=== PATIENT | male | born 1965 | race Two or more races ===

== ENCOUNTER 2023-11-16 06:19 | Day surgery (SDC) | payer BC, SELFPAY ==
[2023-11-02 06:46] VITALS: BMI 29.8
[2023-11-02 08:59] LABS: Hematocrit 40.4 % (39.0-52.0); Hemoglobin 13.8 g/dL (13.0-18.0); Mean Corp Hgb Conc. 34.2 g/dL (33.0-37.0); Mean Corpuscular Hgb 30.5 pg (27.0-31.0); Mean Corpuscular Volume 89.2 fL (80.0-94.0); Mean Platelet Volume 10.9 fL (7.4-10.4); Platelet Count 268 10^3/uL (130-400); Red Blood Cell Count 4.53 10^6/uL (4.70-6.10); Red Cell Dist. Width 12.9 % (11.5-14.5); White Blood Cell Count 6.9 10^3/uL (4.8-10.8)
[2023-11-02 09:11] LABS: Blood Urea Nitrogen 16 mg/dl (9-20); Calcium 9.3 mg/dl (8.4-10.2); Carbon Dioxide 25 mmol/L (22-30); Chloride 106 mmol/L (98-107); Estimated Creatinine Clearance 104 ml/min; Glucose 87 mg/dl (70-99); Potassium 4.2 mmol/L (3.5-5.1); Sodium 140 mmol/L (135-145); eGFR > 60.00
[2023-11-16] VITALS (14 sets, daily range): BP systolic 102–136; BP diastolic 70–91; BMI 29.8
[2023-11-16] MEDS: TYLENOL 1000 MG PO (10:43)
[2023-11-16] MEDS: NORMOSOL-R 1000 IV (10:56)
[2023-11-16] MEDS: DILAUDID 0.5 MG IV ×5 (12:54→13:41)
--- NOTE | 2023-11-16 13:28 | SUR.PHASEI ---
Patient having 'severe' pain on arrival to PACU, patient agitated, abdomen benign. Medicated per orders. Dr Mancini informed. Patient had 8 beat run OF VT, Dr Camacho informed, no orders. Isabelle Hill RN BSN.
--- NOTE | 2023-11-16 13:43 | SUR.PHASEI ---
Patient seen by Dr Mancini regarding 'severe pain' no orders. seen by Dr Camacho re non sustained VT, no orders. Isabelle lynn RN BSN.
[2023-11-16] MEDS: DILAUDID 0.25 MG IV ×3 (13:54→14:21)
--- NOTE | 2023-11-16 14:22 | SUR.PHASEI ---
Patient remains to have 'severe pain' Dr Camacho contacted re same. Isabelle Hill RN BSN.
[2023-11-16] MEDS: ROXICODONE 5 MG PO (15:14)
== END 2023-11-16 16:00 | disposition home or self-care (01) ==
LOC: SDS 06:19
PROVIDERS: ATTENDING PHYSICIAN Surgery; FAMILY PHYSICIAN Family Medicine
DX: K40.90 Unilateral inguinal hernia, without obstruction or gangrene, not specified as recurrent (principal)
CPT/HCPCS: 49650; 36415; 80048; 85027; C1781

== ENCOUNTER 2024-09-12 01:20 | Emergency (ER) | payer BC, SELFPAY ==
[2024-09-12 01:23] VITALS: BP 121/94
[2024-09-12 02:17] VITALS: BP 127/85
[2024-09-12 02:25] VITALS: BMI 30.2
--- NOTE | 2024-09-12 02:27 | ED.GENMED ---
History of Present Illness
<Manny Dueñas, DO - Last Filed: 09/13/24 12:30>
General
Chief Complaint: Abdominal Pain
Source: patient
Exam Limitations: none
Time Seen by Provider: 09/12/24 01:51
History of Present Illness
History of Present Illness:
See MDM
Past History
<Manny Dueñas, DO - Last Filed: 09/13/24 12:30>
Past History
ED Past Medical History: GERD and Other (Diverticulitis)
ED Past Surgical History: None
Social History
Tobacco: Non-smoker
Alcohol: None
Phy Exam
<Manny Dueñas, DO - Last Filed: 09/13/24 12:30>
Physical Exam
Physical Exam:
See MDM
Course
<Manny Dueñas, DO - Last Filed: 09/13/24 12:30>
Orders/Labs/Results
Orders:
Orders
09/12/24 02:01
CT Abd/pelvis W Iv Cont Urgent
Comment:
Reason For Exam: LLQ pain
0.9% Sodium Chloride 1000 ml [Nss] 1,000 ml IV BOLUS
Ketorolac [Toradol] 30 mg IV NOW STA
Ondansetron Injectable [Zofran] 4 mg IV NOW STA
09/12/24 02:27
Complete Blood Count/With Diff Urgent
Comprehensive Metabolic Panel Urgent
Urinalysis Reflex To Culture Urgent
Date Specimen was Collected: 09/12/24
Time Specimen was Collected: 02:17
Urine Microscopic Reflex Cult Urgent
09/12/24 04:44
Amoxicillin 875 mg/Clav 125 mg [Augmentin 875 mg/125 mg] 1 tablet PO NOW STA
Oxycodone/Acetaminophen [Percocet 5/325] 1 tablet PO NOW STA
Abnormal Lab Results
09/12/24
02:27
MPV 10.5 H fL
(7.4-10.4)
Absolute Neuts (auto) 7.2 H 10^3/uL
(1.4-6.5)
Absolute Lymphs (auto) 0.9 L 10^3/uL
(1.2-3.4)
Neutrophils % 81.8 H %
(42.2-75.2)
Lymphocytes % 10.5 L %
(20.5-51.1)
Ur Occult Blood Reflex 1+ A
(Negative)
Urine RBC 3-6 A /HPF
(0-2)
Urine Bacteria (Reflex) Few A
(Negative)
09/12/24 02:27
09/12/24 02:27
Vital Signs
Initial and Last Documented VS:
Initial Vital Signs
Temp Pulse Resp BP Pulse Ox
98.3 F 84 16 121/94 97
09/12/24 01:23 09/12/24 01:23 09/12/24 01:23 09/12/24 01:23 09/12/24 01:23
Last Documented Vital Signs
Temp Pulse Resp BP Pulse Ox
98.3 F 76 14 111/74 100
09/12/24 01:23 09/12/24 05:25 09/12/24 05:25 09/12/24 05:25 09/12/24 05:25
<Carlos Wilhelm, DO - Last Filed: 09/12/24 05:32>
Orders/Labs/Results
Orders:
Orders
09/12/24 02:01
CT Abd/pelvis W Iv Cont Urgent
Comment:
Reason For Exam: LLQ pain
0.9% Sodium Chloride 1000 ml [Nss] 1,000 ml IV BOLUS
Ketorolac [Toradol] 30 mg IV NOW STA
Ondansetron Injectable [Zofran] 4 mg IV NOW STA
09/12/24 02:27
Complete Blood Count/With Diff Urgent
Comprehensive Metabolic Panel Urgent
Urinalysis Reflex To Culture Urgent
Date Specimen was Collected: 09/12/24
Time Specimen was Collected: 02:17
Urine Microscopic Reflex Cult Urgent
09/12/24 04:44
Amoxicillin 875 mg/Clav 125 mg [Augmentin 875 mg/125 mg] 1 tablet PO NOW STA
Oxycodone/Acetaminophen [Percocet 5/325] 1 tablet PO NOW STA
Abnormal Lab Results
09/12/24
02:27
MPV 10.5 H fL
(7.4-10.4)
Absolute Neuts (auto) 7.2 H 10^3/uL
(1.4-6.5)
Absolute Lymphs (auto) 0.9 L 10^3/uL
(1.2-3.4)
Neutrophils % 81.8 H %
(42.2-75.2)
Lymphocytes % 10.5 L %
(20.5-51.1)
Ur Occult Blood Reflex 1+ A
(Negative)
Urine RBC 3-6 A /HPF
(0-2)
Urine Bacteria (Reflex) Few A
(Negative)
09/12/24 02:27
09/12/24 02:27
Vital Signs
Initial and Last Documented VS:
Initial Vital Signs
Temp Pulse Resp BP Pulse Ox
98.3 F 84 16 121/94 97
09/12/24 01:23 09/12/24 01:23 09/12/24 01:23 09/12/24 01:23 09/12/24 01:23
Last Documented Vital Signs
Temp Pulse Resp BP Pulse Ox
98.3 F 76 14 111/74 100
09/12/24 01:23 09/12/24 05:25 09/12/24 05:25 09/12/24 05:25 09/12/24 05:25
<Manny Dueñas, DO - Last Filed: 09/13/24 12:30>
MDM/Problems Addressed
Differential Diagnosis Includes:
HPI and MDM Narrative:
58-year-old male presenting for evaluation of left lower abdominal pain. This is associated with mild left flank pain as well. He denies urinary symptoms. Patient is concerned this could be another diverticulitis flare. He has followed up with
colorectal in the past and they had suggested surgery. Patient has been hesitant to get the surgery. On exam, he does not have any peritoneal findings but given his prior history, will obtain CT to rule out any evidence of complicated
diverticulitis
Physical exam
General: Mildly uncomfortable
HEENT: protecting airway
Neck: appears supple
CV: No evidence of cyanosis
Resp: No accessory muscle use
Abd: Non-distended. Left lower quadrant tenderness without rebound
Extremities: No deformities
Neuro: alert
Psych: Normal affect
Skin: Intact
Problems Addressed including Acute and Chronic Conditions affecting care:
1. Left lower abdominal pain
Acuity: acute
Prognosis: stable
Details: Will obtain CT rule out diverticulitis
Updates
Given the pain with diverticulosis, patient started on Augmentin
Differential Diagnosis (but not limited to): Diverticulitis, colitis, hernia, kidney stone
Testing considered: Urinalysis
Drug therapy (if applicable): OTC meds, please see d/c instruction regarding Rx drugs
Amount and/or Complexity of Data Reviewed
Clinical info obtained from: Patient
External data reviewed: N/A
Labs I independently reviewed (but not limited to): WBC normal
Radiology: The CT scan was personally and independently reviewed. In addition, official CT report reviewed.
Pulse Ox: not hypoxic
EKG independently reviewed: N/A
Sander Operator: N/A
Critical Care: N/A
Risk of Complication:
Social Determinants of health: Good social support
Discussed with other providers: N/A
Escalation of Care includes Admit/Obs: After being observed in the Emergency Department, pt stable for discharge.
Occasional wrong word or 'sound a like' substitutions may have occurred due to the inherent limitations of voice recognition software. Read the chart carefully and recognize, using context, where substitutions have occurred.
<Manny Dueñas, DO - Last Filed: 09/13/24 12:30>
*Critical Care Note
Total Time (30-74mins, 75-104mins- exclusive of procedures): Not Applicable
<Carlos Wilhelm, DO - Last Filed: 09/12/24 05:32>
Update Note
Update Note:
CT abdomen and pelvis with IV contrast
IMPRESSION:
Appendix is normal. No bowel obstruction or diverticulitis. Mild sigmoid colonic wall thickening suggesting mild colitis. Stomach decompressed.
Abdominal aorta of normal caliber. No cholecystitis or pancreatitis. Mild bladder wall thickening; correlate with urinalysis.
Finalized at [address] EST
[address] scan findings with patient and . Patient complaining of mild abdominal pain at time of discussion.
Nursing called me back to the room stating that patient's pain was more intense.
Given his intermittent pain, I offered to keep the patient. At this time he is considering admission.
Patient got back to nursing and stated that he wanted to try to go home. He is convinced that this is the beginning of his diverticulitis. He states he has felt identical symptoms in the past. I will give him a dose of Augmentin and some pain
medication. Will see if patient's pain is controlled before making a disposition. Patient is in agreement
After much deliberation with his , patient decided to go home. Both nursing and I discussed return to ER instructions at length. Patient feels that the pain is subsided enough for him to be discharged home. Will continue antibiotics and a
small amount of pain medication. Patient will return to the emergency department with worsening condition including but not limited to fever, chills, nausea vomiting or inability to hold down medication.
ED Attending Note
<Manny Dueñas, DO - Last Filed: 09/13/24 12:30>
-
Portions of this chart may have been created with voice recognition software.� Occasional wrong word or��sound alike� substitutions may have occurred due to the inherent limitations of voice recognition software.
Discharge Plan
Departure
Patient Disposition: Home (Routine Discharge)
Date of Disposition: 09/12/24
Time of Disposition: 05:29
Patient with high blood pressure during this ER visit?: No
Discharge Problem:
Abdominal pain, Colitis
Instructions: Clear Liquid Diet, Abdominal Pain
Prescriptions:
New
oxycodone-acetaminophen [Percocet] 5-325 mg tablet
1 tab PO Q6HPRN PRN (Reason: pain) Qty: 7 0RF
amoxicillin-pot clavulanate 875-125 mg tablet
1 tab PO BID Qty: 20 0RF
No Action
omeprazole 40 mg Capsule,Delayed Release(Dr/Ec)
40 mg PO DAILY
Referrals:
Rasta Wiseman MD [Active] - As needed
UNKNOWN - PT DOES,NOT KNOW [Family Provider] -
Activity Restrictions/Additional Instructions:
Your prescriptions were sent electronically to the pharmacy that you specified.
It was a pleasure meeting you and taking part in your care. We hope for your continued healing and wellness.
Please read discharge instructions in their entirety. However, they are for general education and may not describe your exact diagnosis at discharge. Information on your ER visit and medical conditions were discussed with you along with appropriate
follow up information...
If indicated, please take your medications as instructed and indicated on discharge paperwork.
Please schedule a follow up appointment as directed. Call to schedule an appointment
Please return to the emergency department with ANY change in, persisting, or worsening of symptoms. If any of your symptoms do not improve, or persist, or become more severe within 6-12 hours, please return to the emergency department for further
care.
Please return to the emergency department if you develop a headache, neck pain/stiffness, fever greater than 100.4F, chest pain, shortness of breath, persistent nausea, vomiting, slurred speech, difficulty walking, numbness/tingling, weakness, signs
of infection or any other symptoms that are worrisome to you.
If you have any questions or concerns please do not hesitate to call the Hospital at or E-mail me directly at [email or web address]
Interventions
Interventions:
*Risk Screen - Suicide Last Done: 09/12/24 01:23
*General Assessment Last Done: 09/12/24 02:10
*Neglect/Abuse Screening Last Done: 09/12/24 01:23
*ED- Fall Risk Assessment Last Done: 09/12/24 01:23
*ED COVID-19 Vaccine History Last Done: 09/12/24 01:23
*Nursing Disposition Last Done: 09/12/24 05:40
[facility] Assessment Last Done: 09/12/24 02:10
Discharge Date and Time
Discharge Date/Time: 09/12/24 05:40
Print Language: ZIMBABWEAN
[2024-09-12 02:33] LABS: Urine Albumin Negative (Neg - Trace); Urine Bilirubin Negative (Negative); Urine Character Clear (Clear); Urine Color Yellow; Urine Glucose Negative (Negative); Urine Ketone Negative (Negative); Urine Leukocyte Negative (Negative); Urine Nitrite Negative (Negative); Urine Occult Blood 1+ (Negative); Urine Specific Gravity 1.025 (<1.030); Urine Urobilinogen Negative (Neg - 1+)
[2024-09-12 02:34] LABS: % Basophils 0.3 % (0-2); % Immature Granulocytes 0.2 % (0-0.5); % Lymphocytes 10.5 % (20.5-51.1); % Monocytes 6.2 % (1.7-9.3); % Neutrophils 81.8 % (42.2-75.2); Absolute Eosinophils 0.1 10^3/uL (0-0.7); Absolute Lymphocytes 0.9 10^3/uL (1.2-3.4); Absolute Monocytes 0.6 10^3/uL (0.1-0.6); Absolute Neutrophils 7.2 10^3/uL (1.4-6.5); Hematocrit 41.9 % (39.0-52.0); Hemoglobin 14.5 g/dL (13.0-18.0); Mean Corp Hgb Conc. 34.6 g/dL (33.0-37.0); Mean Corpuscular Hgb 30.9 pg (27.0-31.0); Mean Corpuscular Volume 89.1 fL (80.0-94.0); Mean Platelet Volume 10.5 fL (7.4-10.4); Nucleated Red Blood Cells % 0 % (-); Platelet Count 218 10^3/uL (130-400); Red Cell Dist. Width 12.9 % (11.5-14.5); White Blood Cell Count 8.8 10^3/uL (4.8-10.8)
[2024-09-12] MEDS: TORADOL 30 MG IV (02:39)
[2024-09-12] MEDS: ZOFRAN 4 MG IV (02:40)
[2024-09-12] MEDS: NSS 1000 IV (02:40)
[2024-09-12 02:57] LABS: ALT (SGPT) 20 U/L (0-50); AST (SGOT) 21 U/L (17-59); Albumin 4.5 g/dl (3.5-5.0); Alkaline Phosphatase 90 U/L (38-126); Blood Urea Nitrogen 18 mg/dl (9-20); Calcium 9.7 mg/dl (8.4-10.2); Carbon Dioxide 23 mmol/L (22-30); Chloride 107 mmol/L (98-107); Estimated Creatinine Clearance > 125 ml/min; Glucose 99 mg/dl (70-99); Potassium 4.2 mmol/L (3.5-5.1); Sodium 140 mmol/L (135-145); Total Bilirubin 0.9 mg/dl (0.2-1.3); Total Protein 6.9 g/dl (6.3-8.2); eGFR > 60.00
[2024-09-12 03:00] VITALS: BP 114/84
[2024-09-12 03:40] VITALS: BP 119/76
[2024-09-12 03:53] LABS: Urine Bacteria Few (Negative); Urine Mucus Few; Urine Squamous Cell 0-2 /LPF (Few); Urine White Cell 0-2 /HPF (0-5)
[2024-09-12 04:00] VITALS: BP 118/79
[2024-09-12] MEDS: PERCOCET 5/325 1 TABLET PO (04:55)
[2024-09-12] MEDS: AUGMENTIN 875 MG/125 MG 1 TABLET PO (04:55)
[2024-09-12 05:25] VITALS: BP 111/74
== END 2024-09-12 05:40 | disposition home or self-care (01) ==
LOC: EMR 01:20
PROVIDERS: EMERGENCY PHYSICIAN Student in an Organized Health Care Education/Training Program
DX: K52.9 Noninfective gastroenteritis and colitis, unspecified (principal); K21.9 Gastro-esophageal reflux disease without esophagitis
CPT/HCPCS: 96374; 96375; 96361; 99284; 74177; 80053; 81003; 81015; 83690; 85025; 87502; 87811; Q9967

== ENCOUNTER 2024-09-12 13:48 | Emergency (ER) | payer BC, SELFPAY ==
[2024-09-12 13:53] VITALS: BP 136/97
[2024-09-12 14:50] VITALS: BP 142/80
[2024-09-12 15:00] VITALS: BP 134/96
[2024-09-12 15:22] VITALS: BMI 35.9
--- NOTE | 2024-09-12 15:26 | ED.GENMED ---
History of Present Illness
General
Chief Complaint: Abdominal Pain
Source: patient
Exam Limitations: none
Time Seen by Provider: 09/12/24 14:47
Nursing documentation reviewed up to this point in time: agreed with
History of Present Illness
History of Present Illness:
Patient is a 58-year-old male with history of diverticulitis presenting to the emergency department with worsening lower abdominal pain and new onset chills. Patient seen in the ED last night, discharged about 10 hours ago with suspected colitis on
oral antibiotics and pain control. He was offered admission last night although declined. However�patient states pain worsened since getting home and he developed significant chills and feels extremely fatigued. He feels full/bloated and is
unable to tolerate p.o. food/liquid including oral abx that were prescribed.
Patient denies any known fever. He has had no vomiting. No urinary symptoms.
Of note�patient has significant history of diverticulitis and follows with Dr. Schwartz.
Past History
Past History
ED Past Medical History: GERD and Other (Diverticulitis)
ED Past Surgical History: None
Social History
Tobacco: Non-smoker
Alcohol: None
Review of Systems
Review of Systems
Allergies reviewed?: Yes
All Other Systems: ROS reviewed and negative except as documented in HPI and ROS
Phy Exam
Physical Exam
Physical Exam:
Vitals: Patient's vital signs are stable. Temp 100.3 F
General: Patient is well appearing, no acute distress. Nontoxic appearing
Skin: Warm and dry, no rashes or lesions
Head: Normocephalic, atraumatic
Eyes: Sclera nonicteric. EOMs intact. No nystagmus.
Throat: Protecting airway
Neck: Normal ROM, no cervical spine tenderness, no meningismus
Cardiac: Regular rate and rhythm, no murmurs.
Pulm: Normal respiratory effort, no wheezes, rales, rhonchi heard on exam.
Abdomen: Abdomen soft. Mild left mid abdominal tenderness. No rebound tenderness or guarding. No CVA tenderness bilaterally
Extremities: No evidence of cyanosis or edema. Palpable DP pulses bilaterally
Neuro: AAOx3. Grossly intact.
Psychiatric: Normal affect.
Course
Orders/Labs/Results
Orders:
Orders
09/12/24 15:21
0.9% Sodium Chloride 1000 ml [Nss] 1,000 ml IV BOLUS
Acetaminophen [Tylenol] 650 mg PO NOW STA
Iohexol [Omnipaque] See Protocol PO NOW STA
Ketorolac [Toradol] 15 mg IV NOW STA
Ondansetron Injectable [Zofran] 4 mg IV NOW STA
09/12/24 15:22
CT Abd/pel W Iv And Oral Contr Urgent
Comment:
Reason For Exam: Worsening LLQ pain, nausea, chills
09/12/24 15:37
COVID-19 Antigen Urgent
Source: Nasal Swab
Complete Blood Count/With Diff Urgent
Comprehensive Metabolic Panel Urgent
Lipase Urgent
Urinalysis Reflex To Culture Urgent
Date Specimen was Collected: 09/12/24
Time Specimen was Collected: 15:33
Influenza A+B Rapid Molecular Urgent
SONG Source: Nasal Swab
Specimen Description:
Abnormal Lab Results
09/12/24
15:37
RBC 4.60 L 10^6/uL
(4.70-6.10)
Absolute Lymphs (auto) 0.7 L 10^3/uL
(1.2-3.4)
Neutrophils % 83.3 H %
(42.2-75.2)
Lymphocytes % 8.8 L %
(20.5-51.1)
09/12/24 15:37
09/12/24 15:37
Vital Signs
Initial and Last Documented VS:
Initial Vital Signs
Temp Pulse Resp BP Pulse Ox
99.9 F 93 16 136/97 99
09/12/24 13:53 09/12/24 13:53 09/12/24 13:53 09/12/24 13:53 09/12/24 13:53
Last Documented Vital Signs
Temp Pulse Resp BP Pulse Ox
99.9 F 69 11 124/80 99
09/12/24 13:53 09/12/24 18:45 09/12/24 15:15 09/12/24 18:12 09/12/24 18:45
MDM/Problems Addressed
Differential Diagnosis Includes:
Not limited to: Diverticulitis, diverticular abscess bowel perforation, colitis, constipation, pyelonephritis, nephrolithiasis, etc.
MDM/Problems Addressed:
Patient is a 58-year-old male with worsening left lower quadrant abdominal pain now with chills and significant fatigue. He was seen in ED last night, discharge on antibiotic for suspected colitis. Unable to tolerate PO at home. Patient with stable
vital signs on arrival. Physical exam as above. Patient well appearing, in no apparent distress. Abdomen is soft w/ mild tenderness in left lower quadrant � no rebound tenderness or guarding. Cardio/pulmonary assessment unremarkable.Did review
patient�s labs and CT scan performed early this morning in emergency department.
White patient appears well and nontoxic without acute surgical abdomen� given worsening symptoms - will repeat CT scan this time with oral contrast for better evaluation and send off screening labs. Will give Toradol, Zofran, Tylenol, and fluids.
Update: Labs reviewed. No leukocytosis. Chemistry without abnormalities. Urinalysis with no evidence of hematuria or infection. CT scan shows mild uncomplicated diverticulitis of distal descending/sigmoid colon. On reassessment � patient is in no
pain. He states he had a bowel movement and feels better. Did discuss CT findings with patient- now showing uncomplicated diverticulitis. Offered admission for pain control, IV antibiotics vs discharge home. Given patient's pain has improved and he
remains afebrile with no leukocytosis of findings of complicated diverticulitis on imaging � he has decided that he would like to go home and continue oral anabiotics as prescribed last night. Patient will continue Augmentin BID x 10 days as
prescribed. Recommended clear liquid diet followed by low fiber diet. Very close return precautions discussed with patient. He will follow up outpatient with primary care and colorectal, Dr. Schwartz.
Chronic conditions affecting care:
History of diverticulitis
Acute Exacerbation and/or Progression of Chronic Illness:
Acute diverticulitis
*Radiology
Radiology exam reviewed: radiology read reviewed
*Pulse Oximetry
Patient hypoxic: no
*EKG
Interpreted by ED Provider?: NA
*Helicopter Repairer Interpretation
Rate: Helicopter Repairer- N/A
*Critical Care Note
Total Time (30-74mins, 75-104mins- exclusive of procedures): Not Applicable
Data Reviewed
Review of Other/Old Records Reveals: Labs (Labs from 09/12/2024 -no clinically significant abnormalities), Records (Emergency department visit from last night (09/12/2025)-discharged with suspected colitis on oral antibiotics and pain control) and
Radiology Studies (CT scan from 09/11/2024 which demonstrates no acute diverticulitis, some findings suggesting colitis)
Source: previous hospital records
ED Attending Note
-
Portions of this chart may have been created with voice recognition software.� Occasional wrong word or��sound alike� substitutions may have occurred due to the inherent limitations of voice recognition software.
Discharge Plan
Departure
Patient Disposition: Home (Routine Discharge)
Date of Disposition: 09/12/24
Time of Disposition: 18:44
Patient with high blood pressure during this ER visit?: Yes
Condition: Good
Covid-19: Not Applicable
Discharge Problem:
Acute diverticulitis
Instructions: Clear Liquid Diet, Diverticulitis (DC), BLOOD PRESSURE
Prescriptions:
No Action
omeprazole 40 mg Capsule,Delayed Release(Dr/Ec)
40 mg PO DAILY
oxycodone-acetaminophen [Percocet] 5-325 mg tablet
1 tab PO Q6HPRN PRN (Reason: pain) Qty: 7 0RF
amoxicillin-pot clavulanate 875-125 mg tablet
1 tab PO BID Qty: 20 0RF
Referrals:
Marcos Schwartz MD [Active] - Call in 1-3 days for appt
Tiffany Calderón DO [Family Provider] -
Activity Restrictions/Additional Instructions:
Return to the emergency department with any fevers/chills, worsening abdominal pain, intractable nausea/vomiting, worsening in current symptoms, or any other concerns
-As discussed�your CT showed findings of mild uncomplicated diverticulitis.
-You should continue the Augmentin prescription as prescribed last night. This should be taken twice a day for 10 days. I would recommend a clear liquid diet over the next 2 days and slowly advance to low fiber as tolerated.
-It is important stay well-hydrated. Take Tylenol as needed for pain. You can take Percocet which was prescribed last night as needed for severe pain. This may cause drowsiness and should not be taken prior to driving.
-Follow-up with primary care and eliana Leavitt for further evaluation/management and to ensure that symptoms are improving
Monitor your symptoms closely and return to the emergency department with any acute worsening/new symptoms or any other concerns
Interventions
Interventions:
*Risk Screen - Suicide Last Done: 09/12/24 13:53
*General Assessment Last Done: 09/12/24 13:53
*Neglect/Abuse Screening Last Done: 09/12/24 13:53
*ED- Fall Risk Assessment Last Done: 09/12/24 13:53
*ED COVID-19 Vaccine History Last Done: 09/12/24 13:53
*Nursing Disposition Last Done: 09/12/24 18:52
QB-Xrltd[facility]-Bhfrrcxqok Assessment Last Done: 09/12/24 15:22
Discharge Date and Time
Discharge Date/Time: 09/12/24 18:53
Print Language: JAPANESE
[2024-09-12] MEDS: NSS 1000 IV (15:36)
[2024-09-12] MEDS: OMNIPAQUE 50 ML PO (15:45)
[2024-09-12] MEDS: TORADOL 15 MG IV (15:45)
[2024-09-12] MEDS: TYLENOL 650 MG PO (15:45)
[2024-09-12] MEDS: ZOFRAN 4 MG IV (15:46)
[2024-09-12 15:49] LABS: % Basophils 0.3 % (0-2); % Eosinophils 0.4 % (0-6); % Immature Granulocytes 0.3 % (0-0.5); % Lymphocytes 8.8 % (20.5-51.1); % Monocytes 6.9 % (1.7-9.3); % Neutrophils 83.3 % (42.2-75.2); Absolute Lymphocytes 0.7 10^3/uL (1.2-3.4); Absolute Monocytes 0.5 10^3/uL (0.1-0.6); Absolute Neutrophils 6.2 10^3/uL (1.4-6.5); Hematocrit 41.1 % (39.0-52.0); Hemoglobin 14.1 g/dL (13.0-18.0); Mean Corp Hgb Conc. 34.3 g/dL (33.0-37.0); Mean Corpuscular Hgb 30.7 pg (27.0-31.0); Mean Corpuscular Volume 89.3 fL (80.0-94.0); Mean Platelet Volume 10.3 fL (7.4-10.4); Nucleated Red Blood Cells % 0 % (-); Platelet Count 208 10^3/uL (130-400); Red Cell Dist. Width 13.1 % (11.5-14.5); White Blood Cell Count 7.4 10^3/uL (4.8-10.8)
[2024-09-12 16:00] VITALS: BP 128/80
[2024-09-12 16:02] LABS: ALT (SGPT) 17 U/L (0-50); AST (SGOT) 21 U/L (17-59); Alkaline Phosphatase 85 U/L (38-126); Blood Urea Nitrogen 14 mg/dl (9-20); Carbon Dioxide 27 mmol/L (22-30); Chloride 107 mmol/L (98-107); Estimated Creatinine Clearance 110 ml/min; Glucose 96 mg/dl (70-99); Lipase 126 U/L (23-300); Potassium 4.1 mmol/L (3.5-5.1); Sodium 139 mmol/L (135-145); Total Protein 6.5 g/dl (6.3-8.2); eGFR > 60.00
[2024-09-12 16:06] LABS: COVID-19 Antigen Negative (Negative)
[2024-09-12 17:00] VITALS: BP 122/83
[2024-09-12 18:00] LABS: Urine Albumin Negative (Neg - Trace); Urine Bilirubin Negative (Negative); Urine Character Clear (Clear); Urine Color Amber; Urine Glucose Negative (Negative); Urine Ketone Negative (Negative); Urine Leukocyte Negative (Negative); Urine Nitrite Negative (Negative); Urine Occult Blood Negative (Negative); Urine Urobilinogen Negative (Neg - 1+)
[2024-09-12 18:12] VITALS: BP 124/80
== END 2024-09-12 18:53 | disposition home or self-care (01) ==
LOC: EMR 13:48
PROVIDERS: Physician Assistant; EMERGENCY PHYSICIAN Student in an Organized Health Care Education/Training Program; FAMILY PHYSICIAN Family Medicine
DX: K57.32 Diverticulitis of large intestine without perforation or abscess without bleeding (principal); K21.9 Gastro-esophageal reflux disease without esophagitis; Z11.52 Encounter for screening for COVID-19
CPT/HCPCS: 96374; 96375; 96361; 99284; 74177; 80053; 81003; 83690; 85025; 87502; 87811; Q9967

== ENCOUNTER 2025-01-01 06:28 | Emergency (ER) | payer BC, SELFPAY ==
[2025-01-01 06:31] VITALS: BP 122/78
[2025-01-01 06:39] VITALS: BMI 27.8
[2025-01-01 06:43] VITALS: BP 129/90
[2025-01-01] MEDS: ZOFRAN 4 MG IV (06:54)
[2025-01-01] MEDS: NSS 500 IV (06:55)
[2025-01-01] MEDS: TORADOL 15 MG IV (06:55)
--- NOTE | 2025-01-01 06:58 | ED.GENMED ---
History of Present Illness
General
Chief Complaint: Abdominal Pain
Source: patient and records
Exam Limitations: none
Time Seen by Provider: 01/01/25 06:33
Nursing documentation reviewed up to this point in time: agreed with
History of Present Illness
History of Present Illness:
59-year-old male with history as noted presents to the ER for evaluation of GI symptoms. Patient reports that about 3 days ago he started having some vague epigastric/periumbilical pain associated with nonbloody diarrhea. He says that over the
past 24 hours pain began to migrate to left lower quadrant and radiated towards the left back/flank. Started to have some associated nausea no vomiting. Has had poor appetite. No fevers or chills. No urinary symptoms. Only other symptom on
review of systems was mild headache. He has long history of repeated diverticulitis, came to the ER for evaluation. He follows with Dr. Schwartz for colorectal surgeon as well as with Dr. Kapadia for gastroenterology. He had prior hernia repair but no
other significant abdominal surgeries.
Past History
Past History
ED Past Medical History: GERD and Other (Diverticulitis)
ED Past Surgical History: None
Social History
Tobacco: Non-smoker
Alcohol: None
Review of Systems
Review of Systems
All Other Systems: ROS reviewed and negative except as documented in HPI and ROS
Constitutional: Denies fever or chills
Respiratory: Denies trouble breathing
Cardiac: Denies chest pain
ABD/GI: Reports abdominal pain, nausea and diarrhea; Denies vomiting
: Denies dysuria, frequency or flank pain
Musculoskeletal: Denies neck pain or back pain
Neurological: Reports headache; Denies dizzy
Phy Exam
Physical Exam
Physical Exam:
General: Awake, alert, oriented x3; no acute distress
Head: Normocephalic, atraumatic
Eyes: Conjunctiva normal
Throat: Airway intact, handling secretions
Neck: Trachea midline, supple without meningismus
Lungs: Clear to auscultation bilaterally, no wheezing, rales, rhonchi
Heart: Regular rate and rhythm, no murmurs, gallops, or rubs
Abd: Soft, non distended, tender to palpation periumbilical and left lower quadrant
Back: No CVA tenderness
Neuro: No gross deficits
Skin: no rash in area of concern
Extremities: No edema in extremities, warm well-perfused
Scores
Heart Failure Risk
Heart Failure Risk Score: Not Applicable
Heart Score for Chest Pain Patients
STEMI patient?: Not applicable
Withdrawal Assessment of Alcohol
Withdrawal Assessment Completed?: Not applicable
Course
Orders/Labs/Results
Orders:
Orders
01/01/25 06:34
CT Abd/pelvis W Iv Cont Urgent
Comment:
Reason For Exam: LLQ abd pain, h/o diverticulitis
Urinalysis Reflex To Culture Urgent
Ondansetron Injectable [Zofran] 4 mg IV NOW STA
01/01/25 06:35
0.9% Sodium Chloride 500 ml [Nss] 500 ml IV BOLUS
01/01/25 06:42
Ketorolac [Toradol] 15 mg IV NOW STA
01/01/25 06:51
Complete Blood Count/With Diff Urgent
Comprehensive Metabolic Panel Urgent
Abnormal Lab Results
01/01/25
06:51
MPV 10.8 H fL
(7.4-10.4)
Monocytes % 9.5 H %
(1.7-9.3)
Chloride 110 H mmol/L
(98-107)
01/01/25 06:51
01/01/25 06:51
Vital Signs
Initial and Last Documented VS:
Initial Vital Signs
Temp Pulse Resp BP Pulse Ox
37.1 C 75 18 122/78 99
01/01/25 06:31 01/01/25 06:31 01/01/25 06:31 01/01/25 06:31 01/01/25 06:31
Last Documented Vital Signs
Temp Pulse Resp BP Pulse Ox
37.1 C 61 16 121/83 99
01/01/25 06:31 01/01/25 07:00 01/01/25 07:00 01/01/25 07:00 01/01/25 07:04
MDM/Problems Addressed
Differential Diagnosis Includes:
Colitis, diverticulitis, gastroenteritis, nephrolithiasis/UTI
MDM/Problems Addressed:
59-year-old male with history as noted significant for multiple prior episodes of diverticulitis presents to the ER for evaluation of abdominal pain as described above�started periumbilical and has migrated towards the left lower quadrant. Vital
signs as above, physical exam as above. Plan to place an IV check labs including a CBC and a CMP, lipase. Will check urinalysis. Sent for CT of the abdomen pelvis. Provide fluids, antiemetic, pain control. Reassess after the above.
Initial labs reviewed: CBC unremarkable�notably no leukocytosis. CMP shows no clinically significant abnormalities. Patient is currently in CT. Continue to monitor.
CT shows findings consistent with enterocolitis without signs of acute diverticulitis. Certainly clinical syndrome of nausea with diarrhea and more diffuse pain starting in the periumbilical region before migrating seems more consistent with
enterocolitis likely from a virus. He has however had previous episodes of diverticulitis that initially started as a mild colitis. I had a long discussion with the patient we will hold off on antibiotics for the time being but I did provide a
prescription and if his symptoms or not improving over the next few days he can initiate treatment with antibiotic. He will follow-up with his primary care physician. He feels very comfortable with this plan. All questions answered.
*Radiology
Radiology exam reviewed: radiology read reviewed
*Pulse Oximetry
SaO2: 99
Oxygen Mode of Delivery: Room air
Patient hypoxic: no (99%)
*Critical Care Note
Total Time (30-74mins, 75-104mins- exclusive of procedures): Not Applicable
Data Reviewed
Review of Other/Old Records Reveals: Labs and Records
Source: patient and records
ED Attending Note
-
Portions of this chart may have been created with voice recognition software.� Occasional wrong word or��sound alike� substitutions may have occurred due to the inherent limitations of voice recognition software.
Discharge Plan
Departure
Patient Disposition: Home (Routine Discharge)
Date of Disposition: 01/01/25
Time of Disposition: 08:39
Patient with high blood pressure during this ER visit?: No
Discharge Problem:
Enterocolitis
Instructions: Colitis - Discharge instructions, [place] diet
Prescriptions:
New
amoxicillin-pot clavulanate 875-125 mg tablet
1 tab PO BID 10 Days Qty: 20 0RF
No Action
omeprazole 40 mg Capsule,Delayed Release(Dr/Ec)
40 mg PO DAILY
oxycodone-acetaminophen [Percocet] 5-325 mg tablet
1 tab PO Q6HPRN PRN (Reason: pain) Qty: 7 0RF
amoxicillin-pot clavulanate 875-125 mg tablet
1 tab PO BID Qty: 20 0RF
Referrals:
Tiffany Calderón DO [Family Provider, Family Practice] - Follow up in 5-7 days
Activity Restrictions/Additional Instructions:
Thank you for visiting the Emergency Department at [facility].
1. Please schedule a follow up appointment as directed. Call first thing tomorrow morning to make an appointment.
2. If indicated, please take your medications as instructed and indicated on discharge paperwork.
3. If any of your symptoms do not improve, or persist, or become more severe within 6-12 hours, please return to the emergency department for further care.
4. Please return to the emergency department if you develop a headache, neck pain/stiffness, fever greater than 100.4F, chest pain, shortness of breath, persistent nausea, vomiting, slurred speech, difficulty walking, numbness/tingling, weakness,
signs of infection or any other symptoms that are worrisome to you.
Please call [phone] if you have any questions.
Interventions
Interventions:
*Risk Screen - Suicide Last Done: 01/01/25 06:31
*General Assessment Last Done: 01/01/25 06:31
*Neglect/Abuse Screening Last Done: 01/01/25 06:31
*ED- Fall Risk Assessment Last Done: 01/01/25 06:39
*ED COVID-19 Vaccine History Last Done: 01/01/25 06:39
AD-Noornp-Jbmmxtwesc Assessment Last Done: 01/01/25 06:39
Discharge Date and Time
Print Language: [id number]
[2025-01-01 07:00] VITALS: BP 121/83
[2025-01-01 07:04] LABS: Hematocrit 43.3 % (39.0-52.0); Hemoglobin 15.1 g/dL (13.0-18.0); Mean Corp Hgb Conc. 34.9 g/dL (33.0-37.0); Mean Corpuscular Volume 87.3 fL (80.0-94.0); Nucleated Red Blood Cells % 0 % (-); Platelet Count 213 10^3/uL (130-400); Red Cell Dist. Width 13.2 % (11.5-14.5)
[2025-01-01 07:26] LABS: ALT (SGPT) 20 U/L (0-50); AST (SGOT) 22 U/L (17-59); Albumin 4.4 g/dl (3.5-5.0); Alkaline Phosphatase 83 U/L (38-126); Blood Urea Nitrogen 10 mg/dl (9-20); Calcium 9.4 mg/dl (8.4-10.2); Carbon Dioxide 24 mmol/L (22-30); Chloride 110 mmol/L (98-107); Estimated Creatinine Clearance 99 ml/min; Glucose 99 mg/dl (70-99); Potassium 4.0 mmol/L (3.5-5.1); Sodium 140 mmol/L (135-145); Total Protein 7.2 g/dl (6.3-8.2); eGFR > 60.00
== END 2025-01-01 09:00 | disposition home or self-care (01) ==
LOC: EMR 06:28
PROVIDERS: EMERGENCY PHYSICIAN Emergency Medicine; FAMILY PHYSICIAN Family Medicine
DX: K52.9 Noninfective gastroenteritis and colitis, unspecified (principal); R51.9 Headache, unspecified; K21.9 Gastro-esophageal reflux disease without esophagitis; K57.92 Diverticulitis of intestine, part unspecified, without perforation or abscess without bleeding; K22.70 Barrett's esophagus without dysplasia
CPT/HCPCS: 99284; 96375; 96361; 96374; 74177; 80053; 85025; Q9967

== ENCOUNTER 2025-02-05 06:19 | Day surgery (SDC) | payer BC, SELFPAY | END 2025-02-05 10:43 | disposition home or self-care (01) | LOC: GI 06:19 | PROVIDERS: ATTENDING PHYSICIAN Student in an Organized Health Care Education/Training Program | DX: K57.30 Diverticulosis of large intestine without perforation or abscess without bleeding (principal); K63.3 Ulcer of intestine; K31.7 Polyp of stomach and duodenum; D12.1 Benign neoplasm of appendix; K63.5 Polyp of colon; K20.90 Esophagitis, unspecified without bleeding; Z86.0101 Personal history of adenomatous and serrated colon polyps | CPT/HCPCS: 43251; 45385; 45380; 43239; 88305 ==